=== PATIENT | female | born 1965 | race Caucasian/White ===

== ENCOUNTER 2023-11-13 16:00 | Emergency (ER) | payer OTHER, SELFPAY ==
[2023-11-13 16:01] VITALS: BP 169/130
[2023-11-13 16:35] VITALS: BP 178/94
[2023-11-13 17:00] VITALS: BP 139/105
[2023-11-13] MEDS: TORADOL 15 MG IV (17:53)
[2023-11-13 17:56] LABS: % Basophils 0.6 % (0-2); % Eosinophils 1.9 % (0-6); % Immature Granulocytes 0.4 % (0-0.5); % Lymphocytes 13.3 % (20.5-51.1); % Neutrophils 78.8 % (42.2-75.2); Absolute Eosinophils 0.1 10^3/uL (0-0.7); Absolute Lymphocytes 0.9 10^3/uL (1.2-3.4); Absolute Monocytes 0.4 10^3/uL (0.1-0.6); Absolute Neutrophils 5.5 10^3/uL (1.4-6.5); Hematocrit 45.4 % (37.0-47.0); Hemoglobin 15.9 g/dL (12.0-16.0); Mean Corpuscular Hgb 29.9 pg (27.0-31.0); Mean Corpuscular Volume 85.3 fL (81.0-99.0); Mean Platelet Volume 9.7 fL (7.4-10.4); Nucleated Red Blood Cells % 0 %; Platelet Count 244 10^3/uL (130-400); Red Blood Cell Count 5.32 10^6/uL (4.20-5.40); Red Cell Dist. Width 12.5 % (11.5-14.5)
[2023-11-13 18:00] VITALS: BP 150/99
[2023-11-13 18:00] LABS: Blood Urea Nitrogen 14 mg/dl (7-17); Calcium 9.6 mg/dl (8.4-10.2); Carbon Dioxide 27 mmol/L (22-30); Chloride 99 mmol/L (98-107); Glucose 94 mg/dl (70-99); Sodium 137 mmol/L (135-145); eGFR > 60.00
--- NOTE | 2023-11-13 18:11 | ED.GENMED ---
History of Present Illness
<My Ramos PA-C - Last Filed: 11/14/23 11:08>
General
Chief Complaint: Back Pain
Source: patient and family
Exam Limitations: none
Time Seen by Provider: 11/13/23 17:01
Nursing documentation reviewed up to this point in time: agreed with
Travel History
Have you had any contact with someone who has COVID-19?: No
Do you have any symptoms of coronavirus? Fever > 100 degrees, chills, cough, shortness of breath, sore throat, loss of taste or smell, muscle aches, or headache?: No
History of Present Illness
History of Present Illness:
58-year-old female with a past medical history of hypertension, schizophrenia, tobacco use who presents to the emergency department today with severe right-sided back pain that radiates to the abdomen x 2 days. She states that yesterday, she was
sitting on a bench at her sister's, outside, babysitting when the bench collapsed under her and she fell down and back. She denies any blood thinner use. She states that when she fell, is unsure if she hit her head. Currently, she denies no
headache, nausea, vomiting, dizziness. She states that immediately after the fall, she started to have a little bit of pain, but it quickly subsided and her family had to help her stand up. After that time, she is able to walk without
difficulties. She went to bed that night, and she woke up with severe pain suddenly, and states that she had to call her family over to help her. She states that she could not get up on her own and they subsequently called EMS for help. She
states that when she lies in the bed, still, she has no pain at all but any subtle movement brings on severe bout of pain that she describes as muscle spasming. She denies any diarrhea, constipation, dysuria, hematuria. She states that her pain
worsens when she takes a deep breath. She denies numbness and tingling in the genitals, urinary incontinence, fecal incontinence.
Past History
<My Ramos PA-C - Last Filed: 11/14/23 11:08>
Past History
ED Past Medical History: Hypothyroidism, Psychiatric (Paranoid pshychosis) and Other (back pain, methamphetamine abuse, Uterine fibroids,)
ED Past Surgical History: Cholecystectomy
Social History
Tobacco: Former smoker
Alcohol: Occasional
Drug: Other (Methamphetamine)
Personal:
Living: with family (Mother)
Review of Systems
<My Ramos PA-C - Last Filed: 11/14/23 11:08>
Review of Systems
All Other Systems: ROS reviewed and negative except as documented in HPI and ROS
Phy Exam
<My Ramos PA-C - Last Filed: 11/14/23 11:08>
Physical Exam
Physical Exam:
Vitals: Patient is hypertensive, afebrile
General: Patient is well-appearing, no acute distress
Head: Head normocephalic, atraumatic
Skin: Warm and dry, no rashes or lesions, no areas of ecchymosis
Cardiac: Regular rate and rhythm, no murmurs, significant tenderness palpation over the right posterior external chest wall, no
Pulm: Normal through effort, no wheezes, rales, rhonchi
Abdomen: No abdominal tenderness, no organomegaly, no rigidity, no rebound tenderness
Musculoskeletal: Significant pain limits exam to a certain extent, had patient turn over the left side to examine back, patient cried out in extreme pain, was able to feel active spasm on the right side of back during his episode. No midline spinal
tenderness.
Course
<My Ramos PA-C - Last Filed: 11/14/23 11:08>
Orders/Labs/Results
Orders:
Orders
11/13/23 16:05
CR Ribs-right 3 Vw W/pa Chest* Urgent
Comment:
Reason For Exam: fall
11/13/23 17:37
Ketorolac [Toradol] 15 mg IV NOW STA
11/13/23 17:40
Basic Metabolic Panel Urgent
Complete Blood Count/With Diff Urgent
11/13/23 18:14
Cardiac Monitoring- Treatment ONCE
Diazepam [Valium] 2 mg PO NOW STA
11/13/23 18:17
CT Chest/abd/pel W Iv Cont Urgent
Reason For Exam: severe right back pain, abdominal pain
11/13/23 20:00
HYDROmorphone [Dilaudid] 0.5 mg IV NOW STA
11/13/23 21:57
Hydrocodone 5/APAP 325 [Tetonia 5/325] 1 tablet PO NOW STA
Abnormal Lab Results
11/13/23
17:40
Absolute Lymphs (auto) 0.9 L 10^3/uL
(1.2-3.4)
Neutrophils % 78.8 H %
(42.2-75.2)
Lymphocytes % 13.3 L %
(20.5-51.1)
11/13/23 17:40
11/13/23 17:40
Vital Signs
Initial and Last Documented VS:
Initial Vital Signs
Temp Pulse Resp BP Pulse Ox
97.8 F 83 16 169/130 100
11/13/23 16:01 11/13/23 16:01 11/13/23 16:01 11/13/23 16:01 11/13/23 16:01
Last Documented Vital Signs
Temp Pulse Resp BP Pulse Ox
97.8 F 72 13 130/82 96
11/13/23 16:01 11/13/23 22:30 11/13/23 22:30 11/13/23 22:29 11/13/23 22:30
<Claudio Solis MD - Last Filed: 11/13/23 22:01>
Orders/Labs/Results
Orders:
Orders
11/13/23 16:05
CR Ribs-right 3 Vw W/pa Chest* Urgent
Comment:
Reason For Exam: fall
11/13/23 17:37
Ketorolac [Toradol] 15 mg IV NOW STA
11/13/23 17:40
Basic Metabolic Panel Urgent
Complete Blood Count/With Diff Urgent
11/13/23 18:14
Cardiac Monitoring- Treatment ONCE
Diazepam [Valium] 2 mg PO NOW STA
11/13/23 18:17
CT Chest/abd/pel W Iv Cont Urgent
Reason For Exam: severe right back pain, abdominal pain
11/13/23 20:00
HYDROmorphone [Dilaudid] 0.5 mg IV NOW STA
11/13/23 21:57
Hydrocodone 5/APAP 325 [Tetonia 5/325] 1 tablet PO NOW STA
Abnormal Lab Results
11/13/23
17:40
Absolute Lymphs (auto) 0.9 L 10^3/uL
(1.2-3.4)
Neutrophils % 78.8 H %
(42.2-75.2)
Lymphocytes % 13.3 L %
(20.5-51.1)
11/13/23 17:40
11/13/23 17:40
Vital Signs
Initial and Last Documented VS:
Initial Vital Signs
Temp Pulse Resp BP Pulse Ox
97.8 F 83 16 169/130 100
11/13/23 16:01 11/13/23 16:01 11/13/23 16:01 11/13/23 16:01 11/13/23 16:01
Last Documented Vital Signs
Temp Pulse Resp BP Pulse Ox
97.8 F 72 13 130/82 96
11/13/23 16:01 11/13/23 22:30 11/13/23 22:30 11/13/23 22:29 11/13/23 22:30
<My Ramos PA-C - Last Filed: 11/14/23 11:08>
MDM/Problems Addressed
Differential Diagnosis Includes:
Differentials include pneumothorax, hemothorax, rib fracture, musculoskeletal sprain, pulmonary contusion, nephrolithiasis
MDM/Problems Addressed:
right back pain, trauma
Chronic conditions affecting care: HTN, Previous abdomnial surgery (History of cholecystectomy) and Psychiatric illness
Acute Exacerbation and/or Progression of Chronic Illness: HTN
<ONESIMO Freire Last Filed: 11/14/23 11:08>
*Pulse Oximetry
Patient hypoxic: no
*Critical Care Note
Total Time (30-74mins, 75-104mins- exclusive of procedures): Not Applicable
Data Reviewed
Review of Other/Old Records Reveals: Records (Reviewed previous records, reviewed ER physician documentation from 07/12/2023, reviewed ER physician documentation from 05/10/2020)
Source: patient and records
<ONESIMO Freire Last Filed: 11/14/23 11:08>
Patient Management
Escalation/DeEscalation of care consider admission/obs:
58-year-old female with past medical history of hypertension, schizophrenia presenting to emergency department today with right back pain following trauma. The pain is pleuritic. Initial imaging negative for rib fracture, will obtain CT of the
chest, abdomen, and pelvis. Pain poorly controlled with Valium and Toradol, will give Dr. Will Huff taking over care, please see attending note.
ED Attending Note
<ONESIMO Freire Last Filed: 11/14/23 11:08>
-
Portions of this chart may have been created with voice recognition software.� Occasional wrong word or��sound alike� substitutions may have occurred due to the inherent limitations of voice recognition software.
<Claudio Solis MD - Last Filed: 11/13/23 22:01>
ED Attending Note
I performed the substantive portion of visit, reviewed & personally made and approve the management plan that is documented in note by myself or ANDRE.: Yes
I performed a history and physical exam of patient and discussed management with resident, I reviewed resident's note and agree with documented findings and plan of care.: Yes
ED Attending Note:
Patient fell yesterday off a bench landing on her right posterior side. Hurts some initially but bearable. Much worse today. Severe pain with twisting turning or positional. No abdominal pain no head injury no neck pain.
TRAUMA EXAM:
VITAL SIGNS: Vital signs reviewed, cooperative
DISTRESS: No active disease
EYES: Pupils reactive, no orbital trauma
NOSE: No deformity or epistaxis
FACE AND SCALP: No scalp or facial trauma
NECK: Supple nontender
BACK: Back nontender, pelvis stable to compression
RESPIRATORY: No distress, breath sounds normal, tender right lateral mid chest wall. No crepitus or ecchymosis
CARDIAC: No murmur, pulses equal and strong
ABDOMEN: Soft nontender bowel sounds normal
SKIN: Skin intact no bleeding, color normal
EXTREMITIES: Nontender
NEUROLOGICAL: Alert, oriented, no motor deficits
PSYCH: Mood affect normal
Rib x-rays negative. Medically stable. However with the degree of pain patient is having CTs will be done to rule out any internal derangement. Clinically this is clearly related to her trauma yesterday
patient CT shows no acute trauma. Patient's symptoms are clearly musculoskeletal in nature. Very positional. Calcified coronary arteries and follow-up ultrasound of the pelvis. Copy of CT given to patient. No distress and no symptoms at rest.
All with twisting turning coughing sneezing. Symptomatic treatment and follow-up
Discharge Plan
Departure
Patient Disposition: Home (Routine Discharge)
Date of Disposition: 11/13/23
Time of Disposition: 21:58
Patient with high blood pressure during this ER visit?: Yes
Discharge Problem:
Blunt right lateral chest trauma, Calcified coronary arteries, Left pelvic dermoid
Instructions: Blunt Abdominal Trauma (DC), Blunt Chest Trauma (DC), BLOOD PRESSURE
Prescriptions:
New
hydrocodone-acetaminophen 5-325 mg tablet
1 tab PO Q6H PRN (Reason: Pain) Qty: 14 0RF
No Action
levothyroxine 88 MCG tablet
88 mcg PO DAILY
bupropion HCl 100 MG tablet
300 mg PO BID
cephalexin 500 mg capsule
500 mg PO BID 7 Days Qty: 14 0RF
Referrals:
Alex Dinero MD [Active] - Next open appointment
Kay Osborne CRNP [Family Provider] - Follow up in 2-3 days
Stand Alone Forms: Return to Work
Activity Restrictions/Additional Instructions:
Advil or Motrin for pain. Only use the higher pain medication if needed.
Because of the coronary calcification, I do recommend cardiac follow-up. I gave you the name of a cyber policy and strategy planner to call
Also follow-up ultrasound of your pelvis in 6 months as discussed. This is all in your CAT scan report
Interventions
Interventions:
*Risk Screen - Suicide Last Done: 11/13/23 16:01
*General Assessment Last Done: 11/13/23 16:01
*Neglect/Abuse Screening Last Done: 11/13/23 16:01
ED- Fall Risk Assessment Last Done: 11/13/23 17:30
*ED COVID-19 Vaccine History Last Done: 11/13/23 16:01
*Nursing Disposition Last Done: 11/13/23 23:13
ED-Musculoskeletal Assessment Last Done: 11/13/23 17:30
Discharge Date and Time
Discharge Date/Time: 11/13/23 23:13
[2023-11-13] MEDS: VALIUM 2 MG PO (18:18)
[2023-11-13] MEDS: DILAUDID 0.5 MG IV (20:12)
[2023-11-13] MEDS: NORCO 5/325 1 TABLET PO (22:01)
[2023-11-13 22:29] VITALS: BP 130/82
== END 2023-11-13 23:13 | disposition home or self-care (01) ==
LOC: EMR 16:00
PROVIDERS: Physician Assistant; EMERGENCY PHYSICIAN Emergency Medicine; FAMILY PHYSICIAN Nurse Practitioner Family
DX: S29.9XXA Unspecified injury of thorax, initial encounter (principal); W07.XXXA Fall from chair, initial encounter; I10 Essential (primary) hypertension; I25.10 Atherosclerotic heart disease of native coronary artery without angina pectoris; D27.1 Benign neoplasm of left ovary; F20.9 Schizophrenia, unspecified; Z90.49 Acquired absence of other specified parts of digestive tract; Z87.891 Personal history of nicotine dependence
CPT/HCPCS: 99285; 96374; 96375; 71101; 71260; 74177; 80048; 85025; Q9967